=== PATIENT | female | born 1935 | race Caucasian/White ===

== ENCOUNTER → 2016-11-06 | Outpatient (CLI) | payer MEDICARE, MEDICAID ==
[~2016-11-06] MED LIST: ALPRAZOLAM0.5 MG PO; ATENOLOL25 MG PO; CALTRATE 600 +1 TAB PO; CELEXA 20MG20 MG/TAB PO; CENTRUM PERFORM1 TAB PO; CENTRUM SILVER1 TA1 PO; COUMADIN 5MG5 MG/TAB PO; EPA FISH OIL1000 MG PO; FLAXSEED OIL1000 MG PO; FOLIC ACID PO; HYZAAR 12.5 MG-1 TA1 PO; LESCOL PO; LOVENOX 6060 MG/0.6 SQ; MAGNESIUM250 MG PO; NORVASC 5MG5 MG/TAB PO; PRILOSEC 20MG20 MG PO; PRINIVIL40 MG PO; REMERON30 MG PO; TYLENOL 325MG325 MG PO; VITAMIN C500 MG PO; XANAX .25M0.25 MG/TA PO; ZOCOR 20MG20 MG PO; ZOFRAN 4MG T4 MG/TAB PO
== END ==
LOC: BHSO 12:49
DX: F41.1 Generalized anxiety disorder (principal)

== ENCOUNTER → 2016-11-09 | Outpatient (CLI) | payer MEDICARE, MEDICAID | LOC: MC.RAD 14:14 | DX: R92.8 Other abnormal and inconclusive findings on diagnostic imaging of breast (principal); Z85.820 Personal history of malignant melanoma of skin ==

== ENCOUNTER → 2017-01-01 | Outpatient (CLI) | payer MEDICARE, MEDICAID | LOC: BHSO 12:50 | DX: F41.1 Generalized anxiety disorder (principal) ==

== ENCOUNTER → 2017-03-29 | Outpatient (CLI) | payer MEDICARE, MEDICAID | LOC: BHSO 13:28 | DX: F33.41 Major depressive disorder, recurrent, in partial remission (principal) ==

== ENCOUNTER → 2017-10-29 | Outpatient (CLI) | payer MEDICARE, MEDICAID | LOC: BHSO 13:43 | DX: F33.41 Major depressive disorder, recurrent, in partial remission (principal) | CPT/HCPCS: G0463 ==

== ENCOUNTER → 2018-02-03 | Outpatient (CLI) | payer MEDICARE | LOC: MC.RAD 12:40 | DX: Z12.31 Encounter for screening mammogram for malignant neoplasm of breast (principal) ==

== ENCOUNTER → 2018-04-22 | Outpatient (CLI) | payer MEDICARE | LOC: BHSO 13:56 | DX: F41.1 Generalized anxiety disorder (principal) | CPT/HCPCS: G0463 ==

== ENCOUNTER → 2018-07-22 | Outpatient (CLI) | payer MEDICARE | LOC: BHSO 13:48 | DX: F41.1 Generalized anxiety disorder (principal) | CPT/HCPCS: G0463 ==

== ENCOUNTER → 2018-10-21 | Outpatient (CLI) | payer MEDICARE | LOC: BHSO 12:40 | DX: F41.1 Generalized anxiety disorder (principal) | CPT/HCPCS: G0463 ==

== ENCOUNTER → 2019-04-20 | Outpatient (CLI) | payer MEDICARE, MEDICAID | LOC: BHSO 13:47 | DX: F41.1 Generalized anxiety disorder (principal) | CPT/HCPCS: G0463 ==

== ENCOUNTER → 2019-10-04 | Outpatient (CLI) | payer MEDICARE | LOC: MC.RAD 14:05 | DX: Z12.31 Encounter for screening mammogram for malignant neoplasm of breast (principal) ==

== ENCOUNTER → 2019-11-10 | Outpatient (CLI) | payer MEDICARE | LOC: BHSO 13:27 | DX: F41.1 Generalized anxiety disorder (principal) | CPT/HCPCS: G0463 ==

== ENCOUNTER → 2020-04-18 | Outpatient (CLI) | payer MEDICARE | LOC: BHSO 14:40 | DX: F41.1 Generalized anxiety disorder (principal) ==